=== PATIENT | female | born 1945 | race Caucasian/White ===

== ENCOUNTER 2016-12-19 02:14 | Emergency (ER) | payer MEDICARE ==
--- NOTE | 2016-12-19 03:55 | ED NURSING NOTES ---
Clinical Report - Nurses [facility] [address] [place] [address] 12/19/2016 2:17 Patient: CAIO LIZARRAGA TRIAGE Triage time 02:28. Acuity: LEVEL 4. --02:32 TonyaB, R.N. 02:28 12/19/16. BP: 167/86. HR: 71. RR: 16. O2 saturation: 100%. Temp: 97.6 F. Pain level now: 010. --02:32 TonyaB, R.N. Chief Complaint: (high blood sugar). --03:59 TonyaB, R.N. Weight: 85.7 kg. Height/Length: 61 inches. BMI: 35.7. --02:30 TonyaB, R.N. Medications Atenolol Oral. --02:31 TonyaB, R.N. Lisinopril Oral. --02:31 TonyaB, R.N. NexIUM Oral. --02:31 TonyaB, R.N. Pravastatin Sodium Oral. --02:32 TonyaB, R.N. Insulin Regular Human (Conc) Subcutaneous. --02:32 TonyaB, R.N. NovoLIN N Subcutaneous. --02:32 TonyaB, R.N. Allergies Sulfa Antibiotics. --02:30 TonyaB, R.N. History Arrived by private vehicle. Historian: patient. Accompanied by family. ( pt states she is having high blood sugar and is under a lot of stress). This started just prior to arrival. 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 PAST MEDICAL HX: Immunizations: up-to-date. SOCIAL HX: Never smoker. No alcohol use or drug use. No infectious disease exposure. SELF HARM ASSESSMENT: A self harm assessment was performed. The patient answered "no" to the question "Have you recently felt down, depressed, or hopeless?", "Have you noticed less interest or pleasure in doing things?", "Do you have thoughts of harming or killing yourself?", "Are you here because you tried to hurt yourself?", "Have you ever tried to hurt yourself before today?", "Have you recently had thoughts about harming or killing others?" and "Do you have any dangerous items in your possession?". FALL RISK ASSESSMENT: Fall risk assessment completed. No fall risk identified. NUTRITIONAL RISK ASSESSMENT: The nutritional risk assessment revealed no deficiencies. FUNCTIONAL ASSESSMENT: Functional assessment: no impairments noted. LEARNING NEEDS ASSESSMENT: The learning needs assessment revealed no barriers. SKIN INTEGRITY ASSESSMENT: Skin integrity risk assessment completed. No skin integrity risk identified. --02:32 Sonali R.N. PROBLEMS: Hypertension. Hypercholesterolemia. Gastroesophageal Reflux Disease. Diabetes Mellitus. --02:31 Sonali R.N. ADDITIONAL SURGERIES: Hysterectomy. Shoulder Surgery. Wrist . --02:31 Sonali R.N. Interventions ID band on patient. To treatment room. --02:32 Sonali R.N. PHYSICAL ASSESSMENT Ambulatory to room. GENERAL / NEURO / PSYCH: Alert. Oriented X 4. Appears anxious. HEENT: Pupils equal, round and reactive to light. No facial asymmetry noted. Mucous membranes are pink. RESPIRATORY: Respirations not labored. Chest nontender. Breath sounds within normal limits. CVS: Normal sinus rhythm noted. Capillary refill less than 2 seconds. Pulses within normal limits. GI / : Abdomen soft and nontender and normal bowel sounds. SKIN: Skin intact. Skin is warm and dry. Normal skin turgor. --02:33 Sonali R.N. NURSING PROGRESS NOTES Patient identifiers checked. Call light placed in reach. Side rails up x 1. Bed placed in lowest position. Brakes of bed on. --02:33 Sonali R.N. Finger stick glucose: 154; performed by nurse; result shown to the ED physician. --02:41 Sivan Benítez ROdin. DISPOSITION / DISCHARGE Departure time: 03:58. Condition at departure: improved. No learning barriers present. Discharge instructions provided and reviewed with the patient. Patient verbalized understanding. Written instructions provided in Lao. No warning instructions, medication instructions, treatment instructions, referrals given to the patient or diet instructions. No activity restrictions, note given, follow up contact number given or stop smoking instructions. The patient was discharged by the physician. She was discharged home and accompanied by family. She left the Emergency Department ambulatory and via private vehicle. Family member driving. FALL RISK ASSESSMENT: Fall risk assessment completed. No fall risk identified. --03:58 Edy Lyon 03:58 12/19/16. BP: 135/71. HR: 78. RR: 18. O2 saturation: 99%. Temp: deferred. Pain level now: 0/10. --03:58 Edy Lyon Locked/Released at 12/19/2016 3:59 by Edy Lyon
--- NOTE | 2016-12-19 03:55 | ED CLINICAL REPORT ---
Clinical Report - Physicians/Mid Levels [facility] [address] [place] [address] 12/19/2016 2:17 Patient: CAIO LIZARRAGA Time Seen: 02:36. Arrived- By private vehicle. Historian- patient. HISTORY OF PRESENT ILLNESS Chief Complaint: elevated blood sugar, sweating. This started last night. (patient's is currently hospitalized with urosepsis. This has created a lot of stress for her. She acknowledges this and feeling very anxious. Earlier in the evening she became "very sweaty." She was afraid that her blood sugar was too high and checked it.she reports that it was 147. she denies having had any other symptoms, no fever or chills no chest pain or shortness of breath no nausea vomiting or diarrhea). REVIEW OF SYSTEMS No chills, fever, calf pain, chest pain or cough. No difficulty breathing, pedal edema, palpitations, abdominal pain or constipation. No diarrhea, nausea, vomiting or urinary problems. The patient has experienced sweats. All systems otherwise negative, except as recorded above. SOCIAL HISTORY Never smoker. No alcohol use or drug use. FAMILY HISTORY Denies family medical history. ADDITIONAL NOTES The nursing notes have been reviewed. PHYSICAL EXAM Vital Signs: 12/19/2016 02:28 BP: 167/86. HR: 71. RR: 16. O2 saturation: 100%. Temp: 97.6 F. Pain level now: 0/10. Have been reviewed. Appearance: Anxious. Eyes: Pupils equal, round and reactive to light. ENT: Pharynx normal. Neck: Normal inspection. Neck supple. CVS: Normal heart rate and rhythm. Heart sounds normal. Respiratory: No respiratory distress. Breath sounds normal. Abdomen: No visible injury. Soft and nontender. Bowel sounds normal. No organomegaly. No mass. Back: Normal inspection. Skin: Skin warm and dry. Normal skin color. Normal skin turgor. Extremities: Extremities exhibit normal ROM. No calf tenderness. No lower extremity edema. PROGRESS AND PROCEDURES Course of Care: Patient is stable. Patient/family counseled. Old medical records ordered. Old records unavailable. Disposition: Discharged. Condition: stable. CLINICAL IMPRESSION Anxiety reaction. INSTRUCTIONS Warnings: GENERAL WARNINGS: Return or contact your physician immediately if your condition worsens or changes unexpectedly, if not improving as expected, or if other problems arise. Your Current Medications: CONTINUE TAKING THE FOLLOWING MEDICATIONS: Atenolol Oral. Insulin Regular Human (Conc) Subcutaneous. Lisinopril Oral. NexIUM Oral. NovoLIN N Subcutaneous. Pravastatin Sodium Oral. Follow-up: Follow up with your doctor as needed. Understanding of the discharge instructions verbalized by patient and family. (Electronically signed by Stevan Cosme MD 12/19/2016 9:23)
--- NOTE | 2016-12-19 03:55 | ED CLINICAL REPORT ---
Clinical Report - Physicians/Mid Levels [facility] [address] [place] [address] 12/19/2016 2:17 Patient: CAIO LIZARRAGA Time Seen: 02:36. Arrived- By private vehicle. Historian- patient. HISTORY OF PRESENT ILLNESS Chief Complaint: elevated blood sugar, sweating. This started last night. (patient's is currently hospitalized with urosepsis. This has created a lot of stress for her. She acknowledges this and feeling very anxious. Earlier in the evening she became "very sweaty." She was afraid that her blood sugar was too high and checked it.she reports that it was 147. she denies having had any other symptoms, no fever or chills no chest pain or shortness of breath no nausea vomiting or diarrhea). REVIEW OF SYSTEMS No chills, fever, calf pain, chest pain or cough. No difficulty breathing, pedal edema, palpitations, abdominal pain or constipation. No diarrhea, nausea, vomiting or urinary problems. The patient has experienced sweats. All systems otherwise negative, except as recorded above. SOCIAL HISTORY Never smoker. No alcohol use or drug use. FAMILY HISTORY Denies family medical history. ADDITIONAL NOTES The nursing notes have been reviewed. PHYSICAL EXAM Vital Signs: 12/19/2016 02:28 BP: 167/86. HR: 71. RR: 16. O2 saturation: 100%. Temp: 97.6 F. Pain level now: 0/10. Have been reviewed. Appearance: Anxious. Eyes: Pupils equal, round and reactive to light. ENT: Pharynx normal. Neck: Normal inspection. Neck supple. CVS: Normal heart rate and rhythm. Heart sounds normal. Respiratory: No respiratory distress. Breath sounds normal. Abdomen: No visible injury. Soft and nontender. Bowel sounds normal. No organomegaly. No mass. Back: Normal inspection. Skin: Skin warm and dry. Normal skin color. Normal skin turgor. Extremities: Extremities exhibit normal ROM. No calf tenderness. No lower extremity edema. PROGRESS AND PROCEDURES Course of Care: Patient is stable. Patient/family counseled. Old medical records ordered. Old records unavailable. Disposition: Discharged. Condition: stable. CLINICAL IMPRESSION Anxiety reaction. INSTRUCTIONS Warnings: GENERAL WARNINGS: Return or contact your physician immediately if your condition worsens or changes unexpectedly, if not improving as expected, or if other problems arise. Your Current Medications: CONTINUE TAKING THE FOLLOWING MEDICATIONS: Atenolol Oral. Insulin Regular Human (Conc) Subcutaneous. Lisinopril Oral. NexIUM Oral. NovoLIN N Subcutaneous. Pravastatin Sodium Oral. Follow-up: Follow up with your doctor as needed. Understanding of the discharge instructions verbalized by patient and family. (Electronically signed by Stevan Cosme MD 12/19/2016 9:23)
--- NOTE | 2016-12-19 03:55 | ED NURSING NOTES ---
Clinical Report - Nurses [facility] [address] [place] [address] 12/19/2016 2:17 Patient: CAIO LIZARRAGA TRIAGE Triage time 02:28. Acuity: LEVEL 4. --02:32 TonyaB, R.N. 02:28 12/19/16. BP: 167/86. HR: 71. RR: 16. O2 saturation: 100%. Temp: 97.6 F. Pain level now: 010. --02:32 TonyaB, R.N. Chief Complaint: (high blood sugar). --03:59 TonyaB, R.N. Weight: 85.7 kg. Height/Length: 61 inches. BMI: 35.7. --02:30 TonyaB, R.N. Medications Atenolol Oral. --02:31 TonyaB, R.N. Lisinopril Oral. --02:31 TonyaB, R.N. NexIUM Oral. --02:31 TonyaB, R.N. Pravastatin Sodium Oral. --02:32 TonyaB, R.N. Insulin Regular Human (Conc) Subcutaneous. --02:32 TonyaB, R.N. NovoLIN N Subcutaneous. --02:32 TonyaB, R.N. Allergies Sulfa Antibiotics. --02:30 TonyaB, R.N. History Arrived by private vehicle. Historian: patient. Accompanied by family. ( pt states she is having high blood sugar and is under a lot of stress). This started just prior to arrival. 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 PAST MEDICAL HX: Immunizations: up-to-date. SOCIAL HX: Never smoker. No alcohol use or drug use. No infectious disease exposure. SELF HARM ASSESSMENT: A self harm assessment was performed. The patient answered "no" to the question "Have you recently felt down, depressed, or hopeless?", "Have you noticed less interest or pleasure in doing things?", "Do you have thoughts of harming or killing yourself?", "Are you here because you tried to hurt yourself?", "Have you ever tried to hurt yourself before today?", "Have you recently had thoughts about harming or killing others?" and "Do you have any dangerous items in your possession?". FALL RISK ASSESSMENT: Fall risk assessment completed. No fall risk identified. NUTRITIONAL RISK ASSESSMENT: The nutritional risk assessment revealed no deficiencies. FUNCTIONAL ASSESSMENT: Functional assessment: no impairments noted. LEARNING NEEDS ASSESSMENT: The learning needs assessment revealed no barriers. SKIN INTEGRITY ASSESSMENT: Skin integrity risk assessment completed. No skin integrity risk identified. --02:32 Sonali R.N. PROBLEMS: Hypertension. Hypercholesterolemia. Gastroesophageal Reflux Disease. Diabetes Mellitus. --02:31 Sonali R.N. ADDITIONAL SURGERIES: Hysterectomy. Shoulder Surgery. Wrist . --02:31 Sonali R.N. Interventions ID band on patient. To treatment room. --02:32 Sonali R.N. PHYSICAL ASSESSMENT Ambulatory to room. GENERAL / NEURO / PSYCH: Alert. Oriented X 4. Appears anxious. HEENT: Pupils equal, round and reactive to light. No facial asymmetry noted. Mucous membranes are pink. RESPIRATORY: Respirations not labored. Chest nontender. Breath sounds within normal limits. CVS: Normal sinus rhythm noted. Capillary refill less than 2 seconds. Pulses within normal limits. GI / : Abdomen soft and nontender and normal bowel sounds. SKIN: Skin intact. Skin is warm and dry. Normal skin turgor. --02:33 Sonali R.N. NURSING PROGRESS NOTES Patient identifiers checked. Call light placed in reach. Side rails up x 1. Bed placed in lowest position. Brakes of bed on. --02:33 Sonali R.N. Finger stick glucose: 154; performed by nurse; result shown to the ED physician. --02:41 Sivan Benítez ROdin. DISPOSITION / DISCHARGE Departure time: 03:58. Condition at departure: improved. No learning barriers present. Discharge instructions provided and reviewed with the patient. Patient verbalized understanding. Written instructions provided in Portuguese. No warning instructions, medication instructions, treatment instructions, referrals given to the patient or diet instructions. No activity restrictions, note given, follow up contact number given or stop smoking instructions. The patient was discharged by the physician. She was discharged home and accompanied by family. She left the Emergency Department ambulatory and via private vehicle. Family member driving. FALL RISK ASSESSMENT: Fall risk assessment completed. No fall risk identified. --03:58 Edy Lyon 03:58 12/19/16. BP: 135/71. HR: 78. RR: 18. O2 saturation: 99%. Temp: deferred. Pain level now: 0/10. --03:58 Edy Lyon Locked/Released at 12/19/2016 3:59 by Edy Lyon
--- NOTE | 2016-12-19 09:23 | ED MAR SUMMARY ---
..... Medication Administration Record [facility] [address], [place] [id number] Patient: CAIO LIZARRAGA Adama Visit ID: [id number] 71y, F Weight: 85.7 kg Height/Length: 61 in BMI: 35.7 ALLERGIES: Sulfa Antibiotics
--- NOTE | 2016-12-19 09:23 | ED DISCHARGE INSTRUCTIONS ---
Patient: CAIO LIZARRAGA General Instructions [facility] VisitID: [id number] [place] [address] 71y, F Registration Date/Time: 12/19/2016 Anxiety reaction. INSTRUCTIONS Warnings: GENERAL WARNINGS: Return or contact your physician immediately if your condition worsens or changes unexpectedly, if not improving as expected, or if other problems arise. Your Current Medications: CONTINUE TAKING THE FOLLOWING MEDICATIONS: Atenolol Oral. Insulin Regular Human (Conc) Subcutaneous. Lisinopril Oral. NexIUM Oral. NovoLIN N Subcutaneous. Pravastatin Sodium Oral. Follow-up: Follow up with your doctor as needed. Understanding of the discharge instructions verbalized by patient and family. ADDITIONAL INFORMATION Stress Reaction Anxiety is the feeling we all get when we think something bad might happen. It is a normal response to stress and usually causes only a mild reaction. When anxiety becomes more severe, emotions may interfere with daily life. In some cases, you may not even be aware of what it is youre anxious about! During an anxiety reaction, you may feel like you are helpless, nervous, depressed or irritable. Your body may show signs of anxiety in many ways. You may experience dry mouth, shakiness, dizziness, weakness, trouble breathing, chest pressure, headache, nausea, diarrhea, tiredness, inability to sleep or sexual problems. Home Care: 1) Try to locate the sources of stress in your life. They may not be obvious! These may include: -- Daily hassles of life which pile up (traffic jams, missed appointments, car troubles, etc.) -- Major life changes, both good (new baby, job promotion) and bad (loss of job, loss of loved one) -- Overload: feeling that you have too many responsibilities and can't take care of all of them at once -- Feeling helpless, feeling that your problems are beyond what youre able to solve 2) Notice how your body reacts to stress. Learn to listen to your body signals. This will help you take action before the stress becomes severe. 3) When you can, do something about the source of your stress. (Avoid hassles, limit the amount of change that happens in your life at one time and take a break when you feel overloaded). 4) Unfortunately, many stressful situations cannot be avoided. It is necessary to learn HOW TO MANAGE STRESS better. There are many proven methods that will reduce your anxiety. These include simple things like exercise, good nutrition and adequate rest. Also, there are certain techniques that are helpful: relaxation and breathing exercises, visualization, biofeedback and meditation. For more information about this, consult your doctor or go to a local bookstore and review the many books and tapes available on this subject. Follow Up If you feel that your anxiety is not responding to self-help measures, contact your doctor or make an appointment with a counselor. Get Prompt Medical Attention if any of the following occur: -- Your symptoms get worse -- Chest pain or trouble breathing -- Severe headache not relieved by rest and mild pain reliever -- Rapid or irregular heartbeat, fainting You have been given the following additional information: Anxiety Reaction (Electronically signed by Stevan Cosme MD 12/19/2016 9:23)
--- NOTE | 2016-12-19 09:23 | ED MED RECONCILIATION SUMMARY ---
Patient: CAIO LIZARRAGA Medication Reconciliation Report [facility] VisitID: [id number] [address] [place] [address] 71y, F Registration Date/Time: 12/19/2016 Weight: 85.7 kg Height/Length: 61 in. BMI: 35.7 ALLERGIES: Sulfa Antibiotics The patient's Home Medications are listed below: CONTINUE TAKING THE FOLLOWING MEDICATIONS: Atenolol Oral Insulin Regular Human (Conc) Subcutaneous Lisinopril Oral NexIUM Oral NovoLIN N Subcutaneous Pravastatin Sodium Oral The source(s) of the original Home Medication information: Not obtained. The following Medications were given to the patient in the Emergency Department: None. The following Medications were prescribed to the patient: None.
--- NOTE | 2016-12-19 09:23 | ED MED RECONCILIATION SUMMARY ---
Patient: CAIO LIZARRAGA Medication Reconciliation Report [facility] VisitID: [id number] [address] [place] [address] 71y, F Registration Date/Time: 12/19/2016 Weight: 85.7 kg Height/Length: 61 in. BMI: 35.7 ALLERGIES: Sulfa Antibiotics The patient's Home Medications are listed below: CONTINUE TAKING THE FOLLOWING MEDICATIONS: Atenolol Oral Insulin Regular Human (Conc) Subcutaneous Lisinopril Oral NexIUM Oral NovoLIN N Subcutaneous Pravastatin Sodium Oral The source(s) of the original Home Medication information: Not obtained. The following Medications were given to the patient in the Emergency Department: None. The following Medications were prescribed to the patient: None.
--- NOTE | 2016-12-19 09:23 | ED MAR SUMMARY ---
..... Medication Administration Record [facility] [address], [place] [id number] Patient: CAIO LIZARRAGA Adama Visit ID: [id number] 71y, F Weight: 85.7 kg Height/Length: 61 in BMI: 35.7 ALLERGIES: Sulfa Antibiotics
== END 2016-12-19 04:00 | disposition home or self-care (01) ==
LOC: ED SRH 02:14
DX: F41.1 Generalized anxiety disorder (principal); E11.9 Type 2 diabetes mellitus without complications; I10 Essential (primary) hypertension; K21.9 Gastro-esophageal reflux disease without esophagitis; E78.00 Pure hypercholesterolemia, unspecified; Z79.4 Long term (current) use of insulin; Z79.899 Other long term (current) drug therapy; Z88.2 Allergy status to sulfonamides
CPT/HCPCS: 90098